=== PATIENT | male | born 1955 | race African-American/Black ===

== ENCOUNTER 2017-01-19 09:52 | Inpatient (IN) | payer OTHER ==
[~2017-01-19] VITALS: Ht 182.9 cm; Wt 99.0 kg
[2017-01-20] VITALS (21 sets, daily range): BP systolic 121–165; BP diastolic 61–91; PULSE 64–97; RESP 12–20; Ht 182.9 cm; Wt 99.0 kg
[2017-01-20] MEDS ORDERED: NEOSTIGMINE 3 MG/3 ML SYRINGE ONE (07:00)
[2017-01-20] MEDS ORDERED: HYDR12.58 PO (09:24)
[2017-01-20] MEDS ORDERED: ATOR20TA38 PO (09:50)
[2017-01-20] MEDS ORDERED: LACTATED RINGER'S 1,000 ML IV ONE (10:00)
[2017-01-20] MEDS ORDERED: FAMOTIDINE 20 MG INJ IV ONE (10:00)
[2017-01-20] MEDS ORDERED: VANCOMYCIN 1 GM in NS 250 ML IVPB SCH (10:00)
[2017-01-20] MEDS ORDERED: ONDANSETRON 4 MG INJ ONE (11:02)
[2017-01-20] MEDS ORDERED: ONDANSETRON 4 MG INJ IV STA (11:02)
--- NOTE | 2017-01-20 11:16 | HPN ---
Date/Time of Note Date/Time of Note DATE: 01/20/17 TIME: 11:16 Interval H&P Admission Note Pt. seen H&P reviewed: No system changes PAKO DODSON PA-C Jan 20, 2017 11:16
[2017-01-20] MEDS ORDERED: CEPASTAT LOZENGE MT PRN (11:30)
[2017-01-20] MEDS ORDERED: ONDANSETRON 4 MG INJ IV PRN ×2 (11:30→15:30)
[2017-01-20] MEDS ORDERED: BISACODYL 10 MG SUPP PR PRN (11:30)
[2017-01-20] MEDS ORDERED: DIPHENHYDRAMINE 50 MG INJ IV PRN ×2 (11:30→15:30)
[2017-01-20] MEDS ORDERED: CYCLOBENZAPRINE 10 MG TAB PO PRN (11:30)
[2017-01-20] MEDS ORDERED: HYDROmorphONE 1 MG/ML SYG IV PRN (11:30)
[2017-01-20] MEDS ORDERED: AL HYDROX/MG HYDROX/SIMETH 30 ML CUP PO PRN (11:30)
[2017-01-20] MEDS ORDERED: NALOXONE (0.4 MG/ML) INJ IV PRN (11:30)
[2017-01-20] MEDS ORDERED: HYDROCODONE/APAP (10/325) TAB PO PRN ×2 (11:30)
[2017-01-20] MEDS ORDERED: ACETAMINOPHEN 325 MG TAB PO PRN (11:30)
[2017-01-20] MEDS ORDERED: THROMBIN 5000 UNIT VIAL ONE (11:42)
[2017-01-20] MEDS ORDERED: BUPIVACAINE 0.25%/EPI (SDV) 30 ML INJ ONE (11:42)
[2017-01-20] MEDS ORDERED: POLYMYXIN/BACITRACIN 1L IRRIG ONE (11:43)
[2017-01-20] MEDS ORDERED: CA CHLORIDE 10% 10 ML SYRINGE ONE (11:43)
[2017-01-20] MEDS ORDERED: MIDAZOLAM 1 MG/ML 2 ML INJ ONE (11:55)
[2017-01-20] MEDS ORDERED: PROPOFOL 20 ML ONE ×2 (11:55→12:20)
[2017-01-20] MEDS ORDERED: ROCURONIUM 50 MG INJ ONE ×2 (11:55→15:29)
[2017-01-20] MEDS ORDERED: LIDOCAINE 2% (SDV) 5 ML INJ ONE (11:55)
[2017-01-20] MEDS ORDERED: SUCCINYLCHOLINE CHLORIDE 100 MG/5 ML SYG IV ONE (11:55)
[2017-01-20] MEDS ORDERED: DEXAMETHASONE 4 MG/ML 1 ML INJ ONE ×2 (12:20→12:55)
[2017-01-20] MEDS ORDERED: SURGIFOAM POWDER 1 GM KIT ONE (12:30)
[2017-01-20] MEDS ORDERED: HEPARIN 1000 UNITS/ML 10 ML INJ ONE (12:30)
[2017-01-20] MEDS ORDERED: CEFAZOLIN 1 GM INJ ONE (12:30)
[2017-01-20] MEDS ORDERED: VANCOMYCIN 1 GM INJ ONE (12:42)
[2017-01-20] MEDS ORDERED: GLYCOPYRROLATE 1 MG INJ ONE (14:49)
[2017-01-20] MEDS ORDERED: HYDROmorphONE 2 MG/ML SYG ONE (14:49)
[2017-01-20] MEDS ORDERED: FENTAnyl 50 MCG/ML VIAL ONE (15:04)
[2017-01-20] MEDS ORDERED: BUPIVACAINE 0.25% (MPF) 10 ML 10 ML VIAL ONE (15:04)
[2017-01-20] MEDS ORDERED: FENTAnyl 50 MCG/ML VIAL IV PRN (15:30)
[2017-01-20] MEDS ORDERED: HYDROmorphONE (0.2 MG/ML) 10ML SYG IV PRN (15:30)
[2017-01-20] MEDS ORDERED: PROCHLORPERAZINE 10 MG INJ IV PRN (15:30)
[2017-01-20] MEDS ORDERED: MEPERIDINE 25 MG INJ IV PRN (15:30)
[2017-01-20] MEDS: HYDROmorphONE 0.2 MG/ML PCA IV SCH (16:17)
--- NOTE | 2017-01-20 16:28 | OPR ---
DATE OF OPERATION: 01/20/2017 PREOPERATIVE DIAGNOSIS: L3 to L4, L4 to L5, L5 to S1 stenosis with radiculopathy and L4 to-L5 disk extrusion. POSTOPERATIVE DIAGNOSIS: L3 to L4, L4 to L5, L5 to S1 stenosis with radiculopathy and L4 to-L5 disk extrusion. PROCEDURE PERFORMED: 1. Central decompressive laminectomy at L3 to L4, L4 to L5 and L5 to S1 with decompression of L3, L 4, L5 and S1 nerve roots bilaterally for stenosis. 2. Bilateral L4 to L5 diskectomy. 3. Use of operative microscope. 4. Lateral localizing film x2. 5. Intraoperative neuromonitoring (3 hours 15 minutes). 6. Epidural injection via catheter. PRIMARY SURGEON: James Freitas MD LICENSING SPECIALIST: KODY Cantrell NEED FOR SCIENCE INTERN: During this spinal surgical procedure, my sugar laboratory assistant was used to retrac t and protect the spinal nerves and dural sac. My sugar laboratory assistant also employed the suction catheters to evacuate blood from the surgical field to improve visualization of the neural structures. The hamilton tant was medically necessary to facilitate the completion of the surgery in a safe and expeditious anusha. State of [place] regulations, as well as hospital bylaws, preclude the use of non-license d health care personnel, such as operating room technicians, to perform these functions. FINDINGS: Neuromonitoring at the start of the case revealed left L3 amplitude down 50%, right L3 am plitude down 40%, and bilateral L4 amplitude down 40%, left L5 amplitude down 40%, left S1 amplitude down 10%, right L5 amplitude down 30%, right S1 amplitude down 30%. At the end of the case, nerve signals returned to normal. The patient had severe stenosis with epidural lipomatosis from L3 to th e sacrum with a disk extrusion at L4 to L5. ESTIMATED BLOOD LOSS: 250 mL. Blood returned via [employer]. DRAINS: 1. SPECIMENS: Spinous process and disk was sent to pathology. COMPLICATIONS OF PROCEDURES: None. ANESTHESIOLOGIST: Yanely Robert MD TYPE OF ANESTHESIA: General. INDICATIONS FOR PROCEDURE: This is a 62-year-old gentleman with lumbosacral radiculopathy in the se tting of stenosis and disk herniation. He failed nonoperative measures, therefore, I recommended pr oceeding with the above-mentioned surgery. Preoperatively, we had discussed risks, benefits, and al ternatives. He understood and wished to proceed. DESCRIPTION OF PROCEDURE IN DETAIL: The patient was identified in the preoperative holding area, gi hardy vancomycin antibiotics, taken to the operating room, where he was successfully placed under gene ral anesthesia. Neuromonitoring leads were placed, sequential compressive devices were applied. Fo cuba catheter was introduced. Neuromonitoring was utilized during the procedure for 3 hours and 15 m inutes to include SSEP, MEP, and EMG. This was performed by [employer]. Start time was 12:30 p.m., closure time was 3:45 p.m. The patient was placed on the operating table in the prone positi on over a Magdaleno frame. All bony prominences were well-padded and lateral localizing films obtained to confirm the correct levels. Incision was then made from L3 to the sacrum after injecting paraspinal musculature with 0.25% Lavern ine and epinephrine. The lamina of L3, L4, L5, S1 were subperiosteally dissected. Kerrisons were p laced and lateral localizing films obtained to confirm the correct levels. Once this was confirmed, microscope was brought in and a central decompressive laminectomy was performed at L3 to L4, L4 to L5 and L5 to S1 in order to alleviate the stenosis. The ligamentum flavum was then sharply dissecte d. There was thickened ligamentum flavum as well as epidural lipomatosis causing severe stenosis. I decompressed the lateral recess and decompressed the L3, L4, L5, S1 nerve roots bilaterally in the ir intraspinal path for the stenosis. Once this was done, in order to further decompress the spine, I addressed the L4 to L5 extruded fragments. This added 1 hour to the procedure beyond what was re quired in order for standard decompression for stenosis. On the right, the patient had extruded fra gment. My sugar laboratory assistant retracted the neural elements medially. Annulotomy was made followed by tiesha castillo of the extruded fragment. On the left, I made an annulotomy after my sugar laboratory assistant retracted the neur al elements. I entered the disk space and there were multiple large free extruded fragments within the disk and posterior to the disk which I removed. I then went distal and behind the L5 nerve root was another extruded fragment which I had to incise and removed. Once this was done, all nerve sig nals returned to normal. I irrigated the disk and the wound copiously. I achieved hemostasis with Surgifoam and bipolar cautery. I put bone wax on the bony edges. The wound was irrigated one more time. I passed an epidural catheter through which I injected 100 mcg of fentanyl mixed with 2 mL of Marcai ne 0.25% preservative-free, and the catheter was pulled. The anesthesiologist andreea peripheral blood , which was spun using the damntheradio device. I took the platelet-poor plasma mixed with thrombin, in jected this over the dura for hemostatic purposes. I then placed a deep subfascial drain and the mi croscope was taken off the field. I closed the deep fascia with #1 Stratafix suture. I then closed subcutaneous tissue with 2-0 Vicryl stitch. A 4-0 Monocryl closure was then performed. Dermabond and dry sterile dressings were then applied. The patient was then awakened from anesthesia and take n to the recovery room in stable condition. Lap, sponge, and instrument counts were correct x2. Th ere were no apparent complications during the procedure. The patient will be admitted to the [facility] for routine postoperative care to include pain c ontrol, neurovascular checks, antibiotics, and physical therapy. Dictated By: JAMES NORIEGA/BRYNN Conf#: [id number] DID#: [id number]
--- NOTE | 2017-01-20 16:49 | RADRPT ---
PROCEDURE: Intraoperative XR. CLINICAL INDICATION: Intraoperative radiograph during lumbar spine surgery.. TECHNIQUE: Spot intraoperative lateral lumbar x-ray image was provided. The images were reviewed on a high-resolution PACS workstation. COMPARISON: None available FINDINGS: Spot intraoperative lateral lumbar view were provided during lumbar spine surgery. The images demon strate metallic instrumentation at the level of L4 and S1. There are anterior osteophytes at L3-4, 4 5 and L5-S1 with severe loss of disc-space height and discogenic endplate changes at L5-S1. IMPRESSION: 1. Spot intraoperative lateral lumbar view during lumbar spine surgery were provided. 2. Please see operative report of the same day for further information. RPTAT: HGAS .Francois Read MD, MD Date Time Electronically viewed and signed by .Francois Read MD, on 01/20/2017 16:48 .S/
--- NOTE | 2017-01-20 16:49 | RADRPT ---
PROCEDURE: Intraoperative XR. CLINICAL INDICATION: Intraoperative radiograph during L3-S1 decompression.. TECHNIQUE: Spot intraoperative lateral lumbar x-ray image was provided. The images were reviewed on a high-resolution PACS workstation. COMPARISON: None available FINDINGS: Spot intraoperative lateral lumbar view were provided during L3-S1 decompression. The images demons trate metallic probes at the level of L3 and S1. There are diffuse anterior osteophytes from L3-4 t o L5-S1 with severe loss of disc-space height at L5-S1 and associated discogenic endplate changes. IMPRESSION: 1. Spot intraoperative lateral lumbar view during L3-S1 decompression were provided. 2. Please see operative report of the same day for further information. RPTAT: HGAS .Francois Read MD, Date Time Electronically viewed and signed by .Farncois Read MD, on 01/20/2017 16:49 .S/
[2017-01-20] MEDS: ATORVASTATIN 20 MG TAB PO SCH (20:56)
[2017-01-20] MEDS: DOCUSATE SODIUM 100 MG CAP PO SCH (20:56)
[2017-01-20] MEDS: D5W-0.45 NACL + KCL 20 MEQ 1,000 ML IV SCH ×2 (20:56→21:16)
[2017-01-20] MEDS: ZOLPIDEM 5 MG TAB PO PRN (21:00)
[2017-01-20] MEDS: VANCOMYCIN 1 GM (PMX) 250 ML IVPB SCH (22:02)
[2017-01-21] MEDS: ZOLPIDEM 5 MG TAB PO PRN (02:11)
--- NOTE | 2017-01-21 05:48 | CONS ---
DATE OF ADMISSION: 01/20/2017 DATE OF CONSULTATION: 01/20/2017 POSTOPERATIVE MEDICAL CONSULTATIVE NOTE Thank you very much for allowing me to evaluate this 62-year-old male who just underwent lumbar back surgery. HISTORICAL EVENTS: As you well know, this patient has had progressive disabling pain involving his low back and just underwent a decompressive laminectomy of L3-L4, L4-L5, and L5-S1 for the treatment of severe spinal stenosis and L4-L5 HNP. Presently in recovery, he notes mild back pain but denies cough, wheezing, shortness of breath, nausea, vomiting, abdominal or chest pain. PAST MEDICAL HISTORY: Includes: 1. Hypertension. 2. Hyperlipidemia. 3. Overweight status. 4. History of erectile dysfunction. 5. Osteoarthritis. FAMILY HISTORY: Positive for coronary artery disease. SOCIAL HISTORY: He does not smoke, does drink wine, has mixed drinks. 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 MEDICATIONS: 1. Atorvastatin 20 mg per day. 2. Hydrochlorothiazide 12.5 mg per day. PHYSICAL EXAMINATION: GENERAL: [place] male in no acute distress. VITAL SIGNS: BP 120/81, pulse 70. Respirations are 20. He was afebrile. EYES: Extraocular muscles are full. NOSE, MOUTH, AND THROAT: Normal. NECK: Supple. There was no jugular venous distention, thyroid enlargement, or adenopathy. LUNGS: Clear. HEART: Rhythm regular. ABDOMEN: Nontender. Liver and spleen were not palpable. No masses or tenderness were noted. EXTREMITIES: No edema. Calves nontender. NEUROLOGIC: No lateralizing motor weakness. IMPRESSION: 1. Stable postoperative lumbar laminectomy. 2. History of hypertension. For the moment, we will not resume hydrochlorothiazide and observe blo od pressure. 3. Hyperlipidemia. To continue atorvastatin. 4. Will evaluate daily for signs and symptoms of thromboembolic disease. Dictated By: RAFAEL OLSEN MD MR/NTS Conf#: [id number] DID#: [id number] CC: ELIZABETH DUONG MD;*EndCC*
[2017-01-21] MEDS: D5W-0.45 NACL + KCL 20 MEQ 1,000 ML IV SCH ×2 (06:50→16:52)
[2017-01-21 07:00] VITALS: BP 125/74; RESP 18
--- NOTE | 2017-01-21 08:43 | CONS ---
Date/Time of Note Date/Time of Note DATE: 01/21/17 TIME: 08:42 Assessment/Plan Assessment/Plan Additional Assessment/Plan 1. Stable post op Lumbar laminectomy. 2. BP is well controlled 3. Labs were rev Consultation Date/Type/Reason Admit Date/Time Jan 20, 2017 at 08:50 Initial Consult Date Detailed Summary Respiratory: No cough, No shortness of breath Cardiovascular: No chest pain, No orthopenea Gastrointestinal: no complaints Genitourinary: other (card in place) Musculoskeletal: back pain (mod back pain), bone/joint pain Exam/Review of Systems Vital Signs Vitals Vital Signs Date Time Temp Pulse Resp B/P Pulse Ox O2 Delivery O2 Flow Rate FiO2 01/21/17 07:00 97.9 73 18 125/74 98 01/20/17 22:08 Room Air 01/20/17 18:09 2.0 Intake and Output 01/20/17 01/20/17 01/21/17 15:00 23:00 07:00 Intake Total 2000 ml 1080 ml 550 ml Output Total 1350 ml 1520 ml Balance 2000 ml -270 ml -970 ml Exam Neck: No jvd Respiratory: clear to auscultation Cardiovascular: regular rate and rhythm Gastrointestinal: soft Extremities: No edema (and no calf tend) Medications Medications Current Medications Potassium Chloride/Dextrose/ Sod Cl (D5-1/2ns + KCl 20 Meq) 1,000 ml @ 100 mls/ hr Q10H IV Last administered on 01/21/17 06:50; Admin Dose 100 MLS/HR; Start 01/20/17 at 11:16 Acetaminophen/ Hydrocodone Bitart ([place] (10/325)) 1 tab Q4H PRN PO PAIN LEVEL 1-5; Start 01/20/17 at 11:30; Stop 01/21/17 at 10:30 Acetaminophen/ Hydrocodone Bitart ([place] (10/325)) 2 tab Q4H PRN PO PAIN LEVEL 6-10; Start 01/20/17 at 11:30; Stop 01/21/17 at 09:30 Hydromorphone HCl 0.2 mg 0.2 mg Q1H PRN IV BREAKTHROUGH PAIN; Start 01/20/17 at 11:30 Vancomycin HCl (Vancocin) 250 ml @ 125 mls/hr Q12H IVPB Last administered on 22:02; Admin Dose 125 MLS/HR; Start 01/20/17 at 22:00; Stop 01/21/17 at 11:59 Ondansetron HCl (Zofran Inj) 4 mg Q6H PRN IV NAUSEA AND/OR VOMITING Last administered on 01/20/17 19:50; Admin Dose 4 MG; Start 01/20/17 at 11:30 Bisacodyl (Dulcolax Supp) 10 mg DAILY PRN [place] CONSTIPATION; Start 01/20/17 at 11 :30 Docusate Sodium (Colace) 100 mg BID PO Last administered on 01/20/17 20:56; Admin Dose 100 MG; Start 01/20/17 at 21:00 Al Hydrox/Mg Hydrox/Simethicone (Mag-Al Plus) 15 ml Q6H PRN PO CONSTIPATION/ DYSPEPSIA; Start 01/20/17 at 11:30 Acetaminophen (Tylenol Tab) 650 mg Q4H PRN PO PECK OR TEMP GREATER THAN 101.3F; Start 01/20/17 at 11:30 Cyclobenzaprine HCl (Flexeril) 10 mg TID PRN PO MUSCLE SPASMS; Start 01/20/17 at 11:30 Phenol (Cepastat Lozenge) 1 lozenge PRN PRN [place] SORE THROAT; Start 01/20/17 at 11:30 Diphenhydramine HCl (Benadryl) 25 mg Q6H PRN IV ITCHING; Start 01/20/17 at 11: 30 Naloxone HCl (Narcan) 0.2 mg Q2M PRN IV RR 8 BREATHS/MIN OR LESS; Start at 11:30 Hydromorphone HCl (Dilaudid DINING SERVICE WORKER) DINING SERVICE WORKER to be started in PACU Q4PCA IV Last administered on 01/20/17 16:17; Admin Dose 6 MG; Start 01/20/17 at 11:30; Stop 01/21/17 at 10:00 Miscellaneous Information 1. Hold DINING SERVICE WORKER at 1,000... DINING SERVICE WORKER IV ; Start 01/20/17 at 11: 30 Atorvastatin Calcium (Lipitor) 20 mg QHS PO Last administered on 01/20/17 20: 56; Admin Dose 20 MG; Start 01/20/17 at 21:00 RAFAEL OLSEN MD Jan 21, 2017 08:43
[2017-01-21 09:57] LABS: ADD SCAN DIFF NO
[2017-01-21 09:59] LABS: ABNORMAL IP MESSAGE 1; BASOPHILS % 0.2 % (0.0-2.0); EOSINOPHILS % 0.1 % (0.0-7.0); HEMATOCRIT 34.1 % (42.0-52.0); HEMOGLOBIN 12.1 g/dl (14.0-18.0); LYMPHOCYTES # 3.2 10^3/ul (0.8-2.9); LYMPHOCYTES % 17.7 % (15.0-51.0); MEAN CORPUSCULAR HEMOGLOBIN 33.2 pg (29.0-33.0); MEAN CORPUSCULAR HGB CONC 35.5 g/dl (32.0-37.0); MEAN CORPUSCULAR VOLUME 93.7 fl (82.0-101.0); MONOCYTE # 1.7 10^3/ul (0.3-0.9); MONOCYTES % 9.2 % (0.0-11.0); NEUTROPHIL # 13.1 10^3/ul (1.6-7.5); NEUTROPHILS % 72.4 % (39.0-77.0); PLATELET COUNT 198 10^3/UL (140-415); RED BLOOD COUNT 3.64 10^6/ul (4.70-6.10); RED CELL DISTRIBUTION WIDTH 12.4 % (11.5-14.5)
[2017-01-21] MEDS: DOCUSATE SODIUM 100 MG CAP PO SCH ×2 (10:04→20:42)
[2017-01-21 10:16] LABS: POTASSIUM 3.1 mmol/L (3.5-5.1)
[2017-01-21 10:18] LABS: CREATININE 0.84 mg/dl (0.61-1.24)
[2017-01-21 10:19] LABS: CALCIUM 8.7 mg/dl (8.4-10.2); MAGNESIUM 1.8 mg/dl (1.7-2.5)
[2017-01-21 10:30] LABS: ALBUMIN 3.4 g/dl (3.3-4.9)
[2017-01-21 10:33] LABS: BILIRUBIN,INDIRECT 0.5 mg/dl (0-1.1); BILIRUBIN,TOTAL 0.5 mg/dl (0.2-1.3)
[2017-01-21] MEDS: VANCOMYCIN 1 GM (PMX) 250 ML IVPB SCH (10:36)
[2017-01-21] MEDS: HYDROmorphONE 0.2 MG/ML PCA IV SCH (10:44)
[2017-01-21] MEDS ORDERED: POTASSIUM CHLORIDE (SR) 20 MEQ TAB PO STA (11:09)
--- NOTE | 2017-01-21 11:53 | PN ---
Date/Time of Note Date/Time of Note DATE: 01/21/17 TIME: 11:53 Assessment/Plan Lines/Catheters IV Catheter Type (from Nrsg): Peripheral IV Portillo in Place (from Nrsg): Yes Assessment/Plan Assessment/Plan doing well. continue pain control and PT Subjective 24 Hr Interval Summary less leg pain Exam/Review of Systems Vital Signs Vitals Vital Signs Date Time Temp Pulse Resp B/P Pulse Ox O2 Delivery O2 Flow Rate FiO2 01/21/17 07:00 97.9 73 18 125/74 98 01/20/17 22:08 Room Air 01/20/17 18:09 2.0 Intake and Output 01/20/17 01/20/17 01/21/17 15:00 23:00 07:00 Intake Total 2000 ml 1080 ml 550 ml Output Total 1350 ml 1520 ml Balance 2000 ml -270 ml -970 ml Exam Free Text/Dictation NVI Results Result Diagram: 01/21/17 0925 01/21/17 0925 ELIZABETH DUONG MD Jan 21, 2017 11:53
[2017-01-21 12:00] VITALS: BP 147/73; PULSE 82; RESP 18
[2017-01-21 13:17] LABS: ADD UMIC YES; URINE BILIRUBIN (Dip) NEGATIVE (NEGATIVE); URINE BLOOD (Dip) 3+ (NEGATIVE); URINE COLOR LT. YELLOW (YELLOW); URINE GLUCOSE (Dip) NEGATIVE (NEGATIVE); URINE KETONES (Dip) NEGATIVE (NEGATIVE); URINE LEUKOCYTE ESTERASE (Dip) NEGATIVE (NEGATIVE); URINE NITRITE (Dip) NEGATIVE (NEGATIVE); URINE TOTAL PROTEIN (Dip) TRACE (NEGATIVE); URINE UROBILINOGEN (Dip) 1.0 E.U./dL (0.1-1.0)
[2017-01-21 13:36] LABS: BACTERIA,URINE FEW; MUCUS,URINE MANY
[2017-01-21] MEDS ORDERED: POTASSIUM CHLORIDE (SR) 20 MEQ TAB PO SCH (14:00)
[2017-01-21 16:00] VITALS: BP 156/63; PULSE 85; RESP 18
[2017-01-21] MEDS ORDERED: POTASSIUM CHLORIDE (SR) 10 MEQ TAB PO ONE (20:00)
[2017-01-21 20:18] VITALS: BP 134/60; RESP 18
[2017-01-21] MEDS: ATORVASTATIN 20 MG TAB PO SCH (20:42)
[2017-01-22] MEDS: D5W-0.45 NACL + KCL 20 MEQ 1,000 ML IV SCH ×2 (00:48→12:26)
[2017-01-22 05:49] LABS: ADD SCAN DIFF NO
[2017-01-22 05:55] LABS: BASOPHILS % 0.2 % (0.0-2.0); EOSINOPHILS # 0.1 10^3/ul (0.0-0.5); EOSINOPHILS % 0.5 % (0.0-7.0); HEMATOCRIT 34.2 % (42.0-52.0); HEMOGLOBIN 11.8 g/dl (14.0-18.0); LYMPHOCYTES # 2.8 10^3/ul (0.8-2.9); LYMPHOCYTES % 23.9 % (15.0-51.0); MEAN CORPUSCULAR HEMOGLOBIN 32.8 pg (29.0-33.0); MEAN CORPUSCULAR HGB CONC 34.5 g/dl (32.0-37.0); MEAN PLATELET VOLUME 11.1 fl (7.4-10.4); MONOCYTE # 1.5 10^3/ul (0.3-0.9); MONOCYTES % 12.7 % (0.0-11.0); NEUTROPHIL # 7.2 10^3/ul (1.6-7.5); NEUTROPHILS % 62.4 % (39.0-77.0); PLATELET COUNT 189 10^3/UL (140-415); WHITE BLOOD COUNT 11.5 10^3/ul (4.8-10.8)
[2017-01-22 06:09] LABS: POTASSIUM 3.7 mmol/L (3.5-5.1)
[2017-01-22 06:11] LABS: CREATININE 0.89 mg/dl (0.61-1.24)
[2017-01-22 06:12] LABS: CALCIUM 8.5 mg/dl (8.4-10.2); MAGNESIUM 1.9 mg/dl (1.7-2.5)
--- NOTE | 2017-01-22 08:19 | DS ---
DATE OF ADMISSION: 01/20/2017 DATE OF DISCHARGE: 01/22/2017 ADMITTING DIAGNOSIS: Spinal stenosis. DISCHARGE DIAGNOSIS: Spinal stenosis. PROCEDURE: The patient was taken to the operating room on 01/20/2017 and underwent lumbar decompres tanna. HOSPITAL COURSE: The patient was admitted to the [facility] after undergoing the above procedu re. His postoperative course was uncomplicated. By postop day 2 he was deemed stable for discharge , with followup arranged with the undersigned. Dictated By: ELIZABETH NORIEGA/BRYNN Conf#: [id number] DID#: [id number]
[2017-01-22 08:41] VITALS: BP 149/72; RESP 18
[2017-01-22] MEDS: DOCUSATE SODIUM 100 MG CAP PO SCH (08:49)
[2017-01-22] MEDS ORDERED: HYDROCODONE/APAP (10/325) TAB PO PRN (09:30)
--- NOTE | 2017-01-22 11:13 | CONS ---
Date/Time of Note Date/Time of Note DATE: 01/22/17 TIME: 11:12 Assessment/Plan Assessment/Plan Additional Assessment/Plan 1. Stable post op laminectomy and can be dc if ok with ortho and pt 2. BP controlled 3. Labs rev Consultation Date/Type/Reason Admit Date/Time Jan 20, 2017 at 08:50 Detailed Summary Respiratory: No cough, No pleuritic pain, No shortness of breath Cardiovascular: No chest pain, No orthopenea Gastrointestinal: no complaints Genitourinary: No no complaints Musculoskeletal: back pain (mild) Exam/Review of Systems Vital Signs Vitals Vital Signs Date Time Temp Pulse Resp B/P Pulse Ox O2 Delivery O2 Flow Rate FiO2 01/22/17 09:32 16 01/22/17 08:41 98.0 82 149/72 99 01/21/17 16:00 Room Air 01/20/17 18:09 2.0 Intake and Output 01/21/17 01/21/17 01/22/17 15:00 23:00 07:00 Intake Total 1780 ml 1260 ml Output Total 1200 ml 1870 ml Balance 580 ml -610 ml Exam Neck: No jvd Respiratory: clear to auscultation Cardiovascular: regular rate and rhythm Gastrointestinal: soft Extremities: No edema (and no calf tend) Results Result Diagram: 01/22/17 0515 01/22/17 0515 Results 24 hrs Laboratory Tests Test 01/21/17 12:14 01/21/17 17:40 01/22/17 05:15 Urine Color LT. YELLOW Urine Clarity CLEAR Urine pH 6.0 Urine Specific [place] 1.020 Urine Ketones NEGATIVE Urine Nitrite NEGATIVE Urine Bilirubin NEGATIVE Urine Urobilinogen 1.0 E.U./dL Urine Leukocyte Esterase NEGATIVE Urine Microscopic RBC 10-25 Urine Microscopic WBC 2-5 Urine Epithelial Cells FEW Urine Bacteria FEW Urine Mucus MANY Urine Hemoglobin 3+ H Urine Glucose NEGATIVE Urine Total Protein TRACE Potassium Level 3.3 L 3.7 White Blood Count 11.5 #H Red Blood Count 3.60 L Hemoglobin 11.8 L Hematocrit 34.2 L Mean Corpuscular Volume 95.0 Mean Corpuscular Hemoglobin 32.8 Mean Corpuscular Hemoglobin Concent 34.5 Red Cell Distribution Width 12.0 Platelet Count 189 Mean Platelet Volume 11.1 H Neutrophils % 62.4 Lymphocytes % 23.9 Monocytes % 12.7 H Eosinophils % 0.5 Basophils % 0.2 Nucleated Red Blood Cells % 0.0 Neutrophils # 7.2 Lymphocytes # 2.8 Monocytes # 1.5 H Eosinophils # 0.1 Basophils # 0.0 Nucleated Red Blood Cells # 0.0 Sodium Level 137 Chloride Level 101 Carbon Dioxide Level 29 Anion Gap 11 Blood Urea Nitrogen 10 Creatinine 0.89 Glucose Level 93 Calcium Level 8.5 Magnesium Level 1.9 Medications Medications Current Medications Potassium Chloride/Dextrose/ Sod Cl (D5-1/2ns + KCl 20 Meq) 1,000 ml @ 100 mls/ hr Q10H IV Last administered on 01/22/17 00:48; Admin Dose 100 MLS/HR; Start 01/20/17 at 11:16 Hydromorphone HCl (Dilaudid) 0.2 mg Q1H PRN IV BREAKTHROUGH PAIN; Start at 11:30 Ondansetron HCl (Zofran Inj) 4 mg Q6H PRN IV NAUSEA AND/OR VOMITING Last administered on 01/20/17 19:50; Admin Dose 4 MG; Start 01/20/17 at 11:30 Bisacodyl (Dulcolax Supp) 10 mg DAILY PRN [place] CONSTIPATION; Start 01/20/17 at 11 :30 Docusate Sodium (Colace) 100 mg BID PO Last administered on 01/22/17 08:49; Admin Dose 100 MG; Start 01/20/17 at 21:00 Al Hydrox/Mg Hydrox/Simethicone (Mag-Al Plus) 15 ml Q6H PRN PO CONSTIPATION/ DYSPEPSIA; Start 01/20/17 at 11:30 Acetaminophen (Tylenol Tab) 650 mg Q4H PRN PO PECK OR TEMP GREATER THAN 101.3F; Start 01/20/17 at 11:30 Cyclobenzaprine HCl (Flexeril) 10 mg TID PRN PO MUSCLE SPASMS; Start 01/20/17 at 11:30 Phenol (Cepastat Lozenge) 1 lozenge PRN PRN MT SORE THROAT; Start 01/20/17 at 11:30 Diphenhydramine HCl (Benadryl) 25 mg Q6H PRN IV ITCHING; Start 01/20/17 at 11: 30 Naloxone HCl (Narcan) 0.2 mg Q2M PRN IV RR 8 BREATHS/MIN OR LESS; Start at 11:30 Miscellaneous Information 1. Hold MILK CONDENSER at 1,000... MILK CONDENSER IV ; Start 01/20/17 at 11: 30 Atorvastatin Calcium (Lipitor) 20 mg QHS PO Last administered on 01/21/17 20: 42; Admin Dose 20 MG; Start 01/20/17 at 21:00 Acetaminophen/ Hydrocodone Bitart ([place] (10/325)) 1 tab Q4H PRN PO PAIN LEVEL 1-5 Last administered on 01/22/17 08:49; Admin Dose 1 TAB; Start 01/22/17 at 09 :30 RAFAEL OLSEN MD Jan 22, 2017 11:13
== END 2017-01-22 14:24 | disposition home or self-care (01) | DRG 520 ==
LOC: EDSTATUS 12:00 → REC 01-20 08:50 → MS1 01-20 20:20
PROVIDERS: ADMIT Specialist; ATTEND Specialist
PROC: 0SB20ZZ Excision of Lumbar Vertebral Disc, Open Approach (ICD-10-PCS; 2017-01-20)
PROC: 30233H0 Transfusion of Autologous Whole Blood into Peripheral Vein, Percutaneous Approach (ICD-10-PCS; 2017-01-20)
PROC: 01NB0ZZ Release Lumbar Nerve, Open Approach (ICD-10-PCS; principal; 2017-01-20 12:00)
DX: M51.16 Intervertebral disc disorders with radiculopathy, lumbar region (principal); I10 Essential (primary) hypertension; M51.17 Intervertebral disc disorders with radiculopathy, lumbosacral region; M48.06 Spinal stenosis, lumbar region; M48.07 Spinal stenosis, lumbosacral region; E78.5 Hyperlipidemia, unspecified
CPT/HCPCS: 72020; 80048; 80076; 81001; 81003; 83735; 84132; 85025; 86999; 87086; 97116; 97162; 97530; J0330; J0690; J1100; J1170; J1644; J2175; J2250; J2405; J2710; J3010; J3370; J3480; J7120